=== PATIENT | female | born 1975 | race Caucasian/White ===

== ENCOUNTER 2023-01-07 14:51 | Day surgery (SDC) | payer OTHER ==
[2023-01-07] MEDS ORDERED: LIDOCAINE HCL 2% 100 MG/5 ML IJ ONE (14:52)
[2023-01-07] MEDS ORDERED: Versed 2 MG/2 ML Injection ONE (16:11)
[2023-01-07] MEDS ORDERED: DIPRIVAN 200 MG/20 ML IV ONE (17:10)
[2023-01-07] MEDS ORDERED: Lactated Ringers 1,000 ML IV ONE (18:04)
--- NOTE | 2023-01-07 20:51 | XRAY ---
Indication: Right C2-C4 MBB. Intraoperative fluoroscopy provided for 17 seconds. 2 digital spot images submitted for interpretation demonstrates posterior needle tips projecting over the expected right C2-C4 nerve roots. Correlate with intraoperative findings/report.
--- NOTE | 2023-01-08 09:54 | XRAY ---
17 seconds of fluoroscopy was used in surgery for a right C2-C4 MBB.
== END 2023-01-07 17:39 | disposition home or self-care (01) ==
LOC: SDC-PAIN 14:51
PROVIDERS: ATTEND Psychiatry & Neurology Pain Medicine
DX: M47.812 Spondylosis without myelopathy or radiculopathy, cervical region (principal); Z79.899 Other long term (current) drug therapy
CPT/HCPCS: 64490; 64491; 72040; 77002; J2250; J2704

== ENCOUNTER 2023-04-22 13:22 | Day surgery (SDC) | payer OTHER ==
[2023-04-22] MEDS ORDERED: BUPIVACAINE 0.5% VIAL IJ ONE (13:23)
[2023-04-22] MEDS ORDERED: Versed 2 MG/2 ML Injection ONE (15:06)
[2023-04-22] MEDS ORDERED: DIPRIVAN 200 MG/20 ML IV ONE (15:06)
[2023-04-22] MEDS ORDERED: Lactated Ringers 1,000 ML IV ONE (15:34)
--- NOTE | 2023-04-22 20:48 | XRAY ---
Indication: Right C2-C4 MBB. Intraoperative fluoroscopy provided for 15 seconds. 2 digital spot image submitted for interpretation demonstrates posterior needle tip projecting over the expected right C2-C4 nerve roots. Correlate with intraoperative findings/report.
--- NOTE | 2023-04-22 21:43 | XRAY ---
15 seconds of fluoroscopy was used in surgery for a right C2-C4 MBB.
== END 2023-04-22 15:40 | disposition home or self-care (01) ==
LOC: SDC-PAIN 13:22
PROVIDERS: ATTEND Psychiatry & Neurology Pain Medicine
DX: M47.812 Spondylosis without myelopathy or radiculopathy, cervical region (principal)
CPT/HCPCS: 64490; 64491; 72040; 77002; J2250; J2704

== ENCOUNTER 2023-05-27 15:08 | Day surgery (SDC) | payer OTHER ==
[2023-05-27] MEDS ORDERED: BUPIVACAINE 0.5% VIAL IJ ONE (15:09)
[2023-05-27] MEDS ORDERED: DIPRIVAN 200 MG/20 ML IV ONE (16:49)
[2023-05-27] MEDS ORDERED: Lactated Ringers 1,000 ML IV ONE (16:52)
--- NOTE | 2023-05-27 19:49 | XRAY ---
Indication: Left C2-C4 MBB. Intraoperative fluoroscopy provided for 15 seconds. 3 digital spot images submitted for interpretation demonstrates posterior needle tips projecting over the expected left C2-C4 nerve roots. Correlate with intraoperative findings/report.
--- NOTE | 2023-05-28 12:37 | XRAY ---
15 seconds of fluoroscopy was used in surgery for a left C2-C4 MBB.
== END 2023-05-27 17:19 | disposition home or self-care (01) ==
LOC: SDC-PAIN 15:08
PROVIDERS: ATTEND Psychiatry & Neurology Pain Medicine
DX: M47.812 Spondylosis without myelopathy or radiculopathy, cervical region (principal)
CPT/HCPCS: 64491; 64492; 72040; 77002; J2704

== ENCOUNTER 2023-07-01 15:10 | Day surgery (SDC) | payer OTHER ==
[2023-07-01] MEDS ORDERED: XYLOCAINE-MPF 1% 5ML SDV IJ ONE (15:11)
[2023-07-01] MEDS ORDERED: BUPIVACAINE 0.5% VIAL IJ ONE (15:11)
[2023-07-01] MEDS ORDERED: Decadron 4 MG INJ IV ONE (15:11)
[2023-07-01] MEDS ORDERED: Versed 2 MG/2 ML Injection ONE (17:34)
[2023-07-01] MEDS ORDERED: DIPRIVAN 200 MG/20 ML IV ONE (17:34)
[2023-07-01] MEDS ORDERED: Lactated Ringers 1,000 ML IV ONE (17:40)
--- NOTE | 2023-07-01 20:21 | XRAY ---
Indication: Left C2-C4 RFA. Intraoperative fluoroscopy provided for 27 seconds. 3 digital spot images submitted for interpretation demonstrates posterior needle tips projecting over the expected left C2-C4 nerve roots. Correlate with intraoperative findings/report.
--- NOTE | 2023-07-02 08:44 | XRAY ---
27 seconds of fluoroscopy was used in surgery for a left C2-C4 RFA.
== END 2023-07-01 18:10 | disposition home or self-care (01) ==
LOC: SDC-PAIN 15:10
PROVIDERS: ATTEND Psychiatry & Neurology Pain Medicine
DX: M47.812 Spondylosis without myelopathy or radiculopathy, cervical region (principal)
CPT/HCPCS: 64633; 64634; 72040; 77002; J1100; J2250; J2704

== ENCOUNTER 2023-07-02 14:45 | Day surgery (SDC) | payer OTHER ==
[2023-07-02] MEDS ORDERED: BUPIVACAINE 0.5% VIAL IJ ONE (14:46)
[2023-07-02] MEDS ORDERED: XYLOCAINE-MPF 1% 5ML SDV IJ ONE (14:46)
[2023-07-02] MEDS ORDERED: Decadron 4 MG INJ IV ONE (14:46)
[2023-07-02] MEDS ORDERED: Versed 2 MG/2 ML Injection ONE (15:24)
[2023-07-02] MEDS ORDERED: DIPRIVAN 200 MG/20 ML IV ONE (15:24)
[2023-07-02] MEDS ORDERED: Lactated Ringers 1,000 ML IV ONE (15:48)
--- NOTE | 2023-07-02 16:28 | XRAY ---
Indication: Right C2-C4 RFA. Intraoperative fluoroscopy provided for 14 seconds. 2 digital spot images submitted for interpretation demonstrates posterior needle tips projecting over the expected right C2-C4 nerve roots. Correlate with intraoperative findings/report.
--- NOTE | 2023-07-02 16:46 | XRAY ---
14 seconds of fluoroscopy was used in surgery for a right C2-C4 RFA.
== END 2023-07-02 15:59 | disposition home or self-care (01) ==
LOC: SDC-PAIN 14:45
PROVIDERS: ATTEND Psychiatry & Neurology Pain Medicine
DX: M47.812 Spondylosis without myelopathy or radiculopathy, cervical region (principal)
CPT/HCPCS: 64633; 64634; 72040; 77002; J1100; J2250; J2704

== ENCOUNTER 2023-09-02 15:21 | Day surgery (SDC) | payer OTHER ==
[2023-09-02] MEDS ORDERED: LIDOCAINE HCL 2% 100 MG/5 ML IJ ONE (15:22)
[2023-09-02] MEDS ORDERED: Lactated Ringers 1,000 ML IV ONE (16:07)
[2023-09-02] MEDS ORDERED: DIPRIVAN 200 MG/20 ML IV ONE (16:32)
--- NOTE | 2023-09-02 17:13 | XRAY ---
7 seconds of fluoroscopy were used in surgery for a bilateral L4-S1 MBB.
--- NOTE | 2023-09-02 17:13 | XRAY ---
Indication: Bilateral L4-S1 MBB. Intraoperative fluoroscopy provided for 7 seconds. Single digital spot image submitted for interpretation demonstrates posterior needle tips projecting over the expected left and right L4-S1 nerve roots. Correlate with intraoperative findings/report.
== END 2023-09-02 16:58 | disposition home or self-care (01) ==
LOC: SDC-PAIN 15:21
PROVIDERS: ATTEND Psychiatry & Neurology Pain Medicine
DX: M47.816 Spondylosis without myelopathy or radiculopathy, lumbar region (principal)
CPT/HCPCS: 64493; 64494; 72020; 77002; J2704